=== PATIENT | male | born 1990 | race African-American/Black ===

== ENCOUNTER 2016-12-19 07:49 | Emergency (ER) | payer SELFPAY ==
[~2016-12-19] VITALS: Ht 167.6 cm; Wt 83.6 kg
[~2016-12-19 07:49] MED LIST: AMOXICILLIN500 MG PO; AUGMENTIN875 MG PO; IBUPROFEN600 MG PO; KEFLEX500 MG PO; LORTAB 5-325 M1 EACH PO; MOTRIN600 MG PO; NAPROSYN500 MG PO; NORCO 5/3251 TABLET PO; ULTRAM50 MG PO; no home med
[2016-12-19 08:52] LABS: ADD MIUA? NO; BILIRUBIN NEGATIVE; BLOOD NEGATIVE; COLOR YELLOW ((YELLOW)); GLUCOSE (STRIP) NEGATIVE; KETONES NEGATIVE; LEUKOCYTES NEGATIVE; NITRITE NEGATIVE; PROTEIN (STRIP) NEGATIVE; SPECIFIC GRAVITY 1.025 (1.000-1.030); UCUL ADDED? NO; UROBILINOGEN 0.2 MG/DL (0.2-1.0)
[2016-12-19] MEDS ORDERED: FLEXERIL10 MG PO (09:21)
[2016-12-19] MEDS ORDERED: MOTRIN600 MG PO (09:21)
[2016-12-19] MEDS ORDERED: ULTRAM50 MG PO (09:35)
[2016-12-19 09:52] VITALS: BP 113/57
== END 2016-12-19 09:53 | disposition home or self-care (01) ==
LOC: EME 07:49
PROVIDERS: Emergency Medicine
DX: S39.012A Strain of muscle, fascia and tendon of lower back, initial encounter (principal); X58.XXXA Exposure to other specified factors, initial encounter
CPT/HCPCS: 81003; 99281; 99283

== ENCOUNTER 2016-12-27 06:31 | Emergency (ER) | payer SELFPAY ==
[~2016-12-27] VITALS: Ht 167.6 cm; Wt 82.2 kg
[~2016-12-27 06:31] MED LIST changes: +FLEXERIL10 MG PO
[2016-12-27] MEDS ORDERED: FLEXERIL10 MG PO (08:07)
[2016-12-27] MEDS ORDERED: NAPROSYN-EC500 MG PO (08:07)
[2016-12-27 08:17] VITALS: BP 127/86
== END 2016-12-27 08:19 | disposition home or self-care (01) ==
LOC: EME 06:31
DX: S39.012A Strain of muscle, fascia and tendon of lower back, initial encounter (principal); X58.XXXA Exposure to other specified factors, initial encounter; Y93.67 Activity, basketball; M62.830 Muscle spasm of back; F17.200 Nicotine dependence, unspecified, uncomplicated
CPT/HCPCS: 99281; 99283; J1885